=== PATIENT | female | born 1980 | race Caucasian/White ===

== ENCOUNTER 2016-04-18 05:27 | Emergency (ER) | payer OTHER ==
--- NOTE | 2016-04-18 06:58 | ED ORDER SUMMARY ---
..... Patient: CARMELITA STOVALL OrderSheet [facility] VisitID: [id number] [place] [address] 35y, F Registration Date/Time: 04/18/2016 ORDER SHEET Weight: 89.8 kg (stated) Allergies: Ibuprofen GENERAL ORDERS: Rapid Influenza Screen (Nasal Pharyngeal) (nasal swab) Urgent (05:44 04/18/2016 EInderbitzen R.N. verbal order read back to Regina SANTILLAN) (Ack 5:55 OSnell) (6:30 EInderbitzen R.N.) MEDICATION ORDERS: - (Tamiflu 75 mg PO x 1) (06:07 04/18/2016 Regina SANTILLAN) (6:30 EInderbitzen R.N.) Hydrocodone-APAP PO 5/325 mg (NOW, HIGH ALERT MEDICATION) (07:10 04/18/2016 Regina SANTILLAN) (7:12 KWilliams R.N.) IV FLUIDS: IV NS : initial bolus 1000 mL (1000 mL/hr), then none - (NOW) (06:05 04/18/2016 Regina SANTILLAN) (6:29 EInderbitzen R.N.) Zofran IV 8 mg (NOW) (06:05 04/18/2016 Regina SANTILLAN) (6:30 EInderbitzen R.N.) Toradol IV 30 mg (NOW) (06:05 04/18/2016 Regina SANTILLAN) (6:30 EInderbitzen R.N.) ORDER SHEET NOTES: [Electronically signed by Shila Walter R.N. (07:15 04/18/2016)] [Electronically signed by Ashanti Antony MD (06:36 04/22/2016)] [Electronically locked/signed by Shila Walter R.N. (07:15 04/18/2016)]
--- NOTE | 2016-04-18 06:58 | ED ORDER SUMMARY ---
..... Patient: CARMELITA STOVALL OrderSheet [facility] VisitID: [id number] [place] [address] 35y, F Registration Date/Time: 04/18/2016 ORDER SHEET Weight: 89.8 kg (stated) Allergies: Ibuprofen GENERAL ORDERS: Rapid Influenza Screen (Nasal Pharyngeal) (nasal swab) Urgent (05:44 04/18/2016 EInderbitzen R.N. verbal order read back to Regina SANTILLAN) (Ack 5:55 OSnell) (6:30 EInderbitzen R.N.) MEDICATION ORDERS: - (Tamiflu 75 mg PO x 1) (06:07 04/18/2016 Regina SANTILLAN) (6:30 EInderbitzen R.N.) Hydrocodone-APAP PO 5/325 mg (NOW, HIGH ALERT MEDICATION) (07:10 04/18/2016 Regina SANTILLAN) (7:12 KWilliams R.N.) IV FLUIDS: IV NS : initial bolus 1000 mL (1000 mL/hr), then none - (NOW) (06:05 04/18/2016 Regina SANTILLAN) (6:29 EInderbitzen R.N.) Zofran IV 8 mg (NOW) (06:05 04/18/2016 Regina SANTILLAN) (6:30 EInderbitzen R.N.) Toradol IV 30 mg (NOW) (06:05 04/18/2016 Regina SANTILLAN) (6:30 EInderbitzen R.N.) ORDER SHEET NOTES: [Electronically signed by Shila Walter R.N. (07:15 04/18/2016)] [Electronically signed by Ashanti Antony MD (06:36 04/22/2016)] [Electronically locked/signed by Shlia Walter R.N. (07:15 04/18/2016)]
--- NOTE | 2016-04-18 06:58 | ED NURSING NOTES ---
Clinical Report - Nurses [facility] [address] [place] [address] 04/18/2016 5:30 Patient: CARMELITA STOVALL TRIAGE Triage time 05:Apr 18 2016. Acuity: LEVEL 3. Chief Complaint: (flu like symptoms). 05:34 04/18/16. AJ COMA SCORE: Aj Coma Scale: 15- eyes open spontaneously (4); best verbal response- oriented x 4 (5); best motor response- obeys commands (6). --05:39 Miranda Mendez R.N. 05:34 04/18/16. BP: 113/70. HR: 84. RR: 24. O2 saturation: 98%. Temp: 98.4 F. Pain level now: 11/25. --05:39 Miranda Mendez R.N. Weight: 89.8 kg stated. Height/Length: 62 inches Per Patient. BMI: 36.2. --05:32 Miranda Mendez RCele. Medications [place] Oral. --05:38 Miranda Mendez R.N. Depakote Oral. --05:38 Miranda Mendez R.N. Gabapentin Oral. --05:38 Miranda Mendez R.N. Allergies Ibuprofen. --05:37 Miranda Mendez R.Jean. Medication/allergy information source: the patient. --05:39 Miranda Mendez RCele. History Arrived by private vehicle. Historian: patient. Accompanied by friend. Onset. (2 weeks). ( worse since Albert, body aches, fevers, cough weak). She has had fever and weakness. She has had a cough productive of sputum (moist). No difficulty breathing or skin rash. Denies muscle aches. 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 PAST MEDICAL HX: Last normal menstrual period- 2010. SOCIAL HX: Heavy tobacco smoker (cigarette)- 1 pack per day. Occasional alcohol use. History of drug use: marijuana. No infectious disease exposure. ABUSE ASSESSMENT: No report of abuse. SELF HARM ASSESSMENT: A self harm assessment was performed. The patient answered "no" to the question "Have you recently felt down, depressed, or hopeless?", "Have you noticed less interest or pleasure in doing things?", "Do you have thoughts of harming or killing yourself?", "Are you here because you tried to hurt yourself?", "Have you ever tried to hurt yourself before today?", "Have you recently had thoughts about harming or killing others?" and "Do you have any dangerous items in your possession?". FALL RISK ASSESSMENT: Fall risk assessment completed. No fall risk identified. NUTRITIONAL RISK ASSESSMENT: The nutritional risk assessment revealed no deficiencies. FUNCTIONAL ASSESSMENT: Functional assessment: no impairments noted. LEARNING NEEDS ASSESSMENT: The learning needs assessment revealed no barriers. SKIN INTEGRITY ASSESSMENT: Skin integrity risk assessment completed. No skin integrity risk identified. --05:39 Miranda Mendez R.N. PROBLEMS: Bipolar Disorder. --05:38 Miranda Mendez R.N. ADDITIONAL SURGERIES: Hysterectomy. --05:38 Miranda Mendez R.N. Interventions ID band on patient. --05:39 Miranda Mendez R.N. PHYSICAL ASSESSMENT 05:40 04/18/16. GENERAL / NEURO / PSYCH: Alert. Oriented X 4. HEENT: Pupils equal, round and reactive to light. Mucous membranes are pink. RESPIRATORY: Respirations not labored. Chest nontender. Breath sounds within normal limits. CVS: Pulses within normal limits. GI / : Abdomen soft and nontender. SKIN: Skin intact. Skin is warm and dry. Normal skin turgor. --05:40 Miranda Mendez R.N. NURSING PROGRESS NOTES 05:39 04/18/16. The initial plan of care for this patient includes an assessment with efforts to address the presence of pain; hydration needs. This plan of care was discussed with the patient. Patient gowned. Reassurance given to the patient. Two patient identifiers checked. Call light placed in reach. Side rails up x 2. Bed placed in lowest position. Brakes of bed on. Patient ready for evaluation. --05:39 Miranda Mendez R.N. 05:40 04/18/16. Patient ID band checked for patient name and birthdate: patient confirmed. Flu swab obtained by RN via nasal swab. Labeled in the presence of the patient and sent to lab. --05:40 Miranda Mendez R.N. 06:24 04/18/2016 Tamiflu PO Capsules 75 mg given. Allergies verified and confirmed 5 rights. --06:30 Miranda Mendez R.N. 06:25 04/18/2016 Site #1 started via IV in the left forearm with an 22g angiocath, with aseptic technique and good blood return; two attempts. Saline lock flushed with 5 mL saline. --06:29 Miranda Mendez R.N. 06:26 04/18/2016 Started bag #1 1000 mL IV Fluids IV NS (Saline); at 1000 mL/hr over 1 hour(s) via site #1. Allergies verified and confirmed 5 rights. IV patency established. IV site checked: no pain, redness, or swelling. IV flushed thoroughly pre- and post-medication administration. --06:29 Miranda Mendez R.N. 06:26 04/18/2016 Zofran (Ondansetron HCl) IVP 8 mg given over 1 minute(s) via site #1. Allergies verified and confirmed 5 rights. IV patency established. IV site checked: no pain, redness, or swelling. IV flushed thoroughly pre- and post-medication administration. IVP given by RN. --06:30 Miranda Mendez R.N. 06:27 04/18/2016 Toradol IVP 30 mg given over 1 minute(s) via site #1. Allergies verified and confirmed 5 rights. IV patency established. IV site checked: no pain, redness, or swelling. IV flushed thoroughly pre- and post-medication administration. IVP given by RN. --06:30 Miranda Mendez R.N. 07:07 04/18/2016 Hydrocodone-APAP (Hydrocodone-Acetaminophen) PO 5/325 mg Tablets 1 tab given. Allergies verified, confirmed 5 rights and sedative warning given to the patient and patient's scanning manager. --07:12 Shila Walter R.N. 07:09 04/18/2016 IV Fluids IV NS Discontinued: bag #1 infused upon discharge. Total amount infused: 1000 mL. IV patency established. IV site checked: no pain, redness, or swelling. IV flushed thoroughly. --07:15 Shila Walter R.N. DISPOSITION / DISCHARGE 07:09 04/18/2016 Site #1 removed upon discharge. Bandage applied. --07:14 Shila Walter R.N. 07:14 04/18/16. Departure time: 712. Condition at departure: improved and stable. No learning barriers present. Discharge instructions provided and reviewed with the patient and spouse. Reviewed medication(s) side effects, precautions, dosing and course information. Prescription(s) given to the patient. Patient verbalized understanding. Written instructions provided in [place]. The patient was discharged by the physician. She was discharged home and accompanied by spouse. She left the Emergency Department ambulatory and via private vehicle. Spouse driving. --07:14 Shila Walter R.N. 07:13 04/18/16. BP: 113/76. HR: 78. RR: 17. O2 saturation: 99% on room air. Temp: 99.2 F (oral). Pain level now 5/10. --07:14 Shila Walter R.N. Locked/Released at 04/18/2016 7:15 by Shila Walter R.N.
--- NOTE | 2016-04-18 06:58 | ED CLINICAL REPORT ---
Clinical Report - Physicians/Mid Levels [facility] [address] [place] [address] 04/18/2016 5:30 Patient: CARMELITA STOVALL Time Seen: 05:35. Arrived- By private vehicle. Historian- patient. HISTORY OF PRESENT ILLNESS Chief Complaint: DYSPNEA and fever. This started about 3 days ago and is still present. The dyspnea is described as mild and is worsened by cough and is improved by rest. The patient has had a cough and chills. No sputum production, sweating episodes, wheezing or dyspnea on exertion. No chest pain or discomfort, calf pain, foot swelling or orthopnea. No anxiety, dizziness, tingling, numbness or palpitations. The patient has had fever (- gone). Similar symptoms previously: None. Recent medical care: Not recently seen/assessed. REVIEW OF SYSTEMS The patient has not had weight loss. She has had a nasal discharge, muscle aches, a sore throat and headache and nausea. She has had vomiting. No eye irritation, sinus drainage, abdominal pain, diarrhea or black stools. No bloody stools, fainting episodes, blurred vision, difficulty with urination or excessive urination. No skin rash, enlarged lymph nodes or joint pain. Denies current . All systems otherwise negative, except as recorded above. PAST HISTORY Problems: Mental Illness. Anxiety Reaction. Personality Disorder. Suicidal Ideation. Alcohol Intoxication. Carpal Bone Fracture. Hypertension. Tetanus Status. Bipolar Disorder. Depression. Additional Surgeries: Hysterectomy. Medications: Gabapentin Oral. Depakote Oral. Pasatiempo Oral. Allergies: Ibuprofen. SOCIAL HISTORY Smoker- current status unknown. Alcohol use. History of drug use: marijuana. ADDITIONAL NOTES The nursing notes have been reviewed. PHYSICAL EXAM Vital Signs: 04/18/2016 05:34 BP: 113/70. HR: 84. RR: 24. O2 saturation: 98%. Temp: 98.4 F. Pain level now: 8/10. Have been reviewed. Appearance: Alert. No acute distress. Eyes: Pupils equal, round and reactive to light. Eyes normal inspection. ENT: Nose normal. Neck: Normal inspection. Neck supple. CVS: Normal heart rate and rhythm. Heart sounds normal. Pulses normal. Respiratory: No respiratory distress. Breath sounds normal. Abdomen: Soft and nontender. Back: Normal inspection. No CVA tenderness. Skin: Skin warm and dry. Normal skin color. No rash. Normal skin turgor. Extremities: Extremities exhibit normal ROM. No lower extremity edema. Neuro: Oriented X 3. No motor deficit. No sensory deficit. LABS, X-RAYS, AND EKG Laboratory Tests: Rapid Influenza Screen: (WHITLEY: 04/18/2016 05:40) ( MsgRcvd 04/18/2016 06:08) Final results SPECIMEN DESCRIPTION: NASAL SWAB Test Result Flag Units (Reference) RAPID INFLUENZA SCREEN CALLED TO: NANETTE@0607 -- DATE: 04/18/16 INFLUENZA A: POSITIVE SCREEN FOR INFLUENZA A INFLUENZA B: NEGATIVE SCREEN FOR INFLUENZA B . Pulse Oximetry: 04/18/2016 05:34 O2 saturation: 98%. (FIO2 - room air). Interpretation: normal. PROGRESS AND PROCEDURES Course of Care: PT was given IV fluids, Zofran, Toradol, and Dilaudid for symptomatic relief. Sx were suspicious for influenza, and pt did test positive for Influenza A. She was started on Tamiflu for this. Patient counseled in person regarding the patient's stable condition, test results, diagnosis and need for follow-up. Concerns were addressed. Old medical records reviewed. Disposition: Discharged. Condition: stable and improved. CLINICAL IMPRESSION Influenza type A with upper respiratory infection, pharyngitis and gastroenteritis. INSTRUCTIONS (Your influenza test was positive.). Warnings: GENERAL WARNINGS: Return or contact your physician immediately if your condition worsens or changes unexpectedly, if not improving as expected, or if other problems arise. Your Current Medications: CONTINUE TAKING THE FOLLOWING MEDICATIONS: Depakote Oral. Gabapentin Oral. Pasatiempo Oral. Prescription Medications: Tamiflu 75 mg: take 1 capsule orally every 12 hours for 5 days. No refill. Substitution is permissible. Follow-up: Follow up with your doctor as needed. Understanding of the discharge instructions verbalized by patient. (Electronically signed by Ashanti Antony MD 04/22/2016 6:36)
--- NOTE | 2016-04-18 06:58 | ED NURSING NOTES ---
Clinical Report - Nurses [facility] [address] [place] [address] 04/18/2016 5:30 Patient: CARMELITA STOVALL TRIAGE Triage time 05:Apr 18 2016. Acuity: LEVEL 3. Chief Complaint: (flu like symptoms). 05:34 04/18/16. AJ COMA SCORE: Aj Coma Scale: 15- eyes open spontaneously (4); best verbal response- oriented x 4 (5); best motor response- obeys commands (6). --05:39 Miranda Mendez R.N. 05:34 04/18/16. BP: 113/70. HR: 84. RR: 24. O2 saturation: 98%. Temp: 98.4 F. Pain level now: 11/25. --05:39 Miranda Mendez R.N. Weight: 89.8 kg stated. Height/Length: 62 inches Per Patient. BMI: 36.2. --05:32 Miranda Mendez RCele. Medications [place] Oral. --05:38 Miranda Mendez R.N. Depakote Oral. --05:38 Miranda Mendez R.N. Gabapentin Oral. --05:38 iMranda Mendez R.N. Allergies Ibuprofen. --05:37 Miranda Mendez R.Jean. Medication/allergy information source: the patient. --05:39 Miranda Mendez RCele. History Arrived by private vehicle. Historian: patient. Accompanied by friend. Onset. (2 weeks). ( worse since Albert, body aches, fevers, cough weak). She has had fever and weakness. She has had a cough productive of sputum (moist). No difficulty breathing or skin rash. Denies muscle aches. 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 PAST MEDICAL HX: Last normal menstrual period- 2010. SOCIAL HX: Heavy tobacco smoker (cigarette)- 1 pack per day. Occasional alcohol use. History of drug use: marijuana. No infectious disease exposure. ABUSE ASSESSMENT: No report of abuse. SELF HARM ASSESSMENT: A self harm assessment was performed. The patient answered "no" to the question "Have you recently felt down, depressed, or hopeless?", "Have you noticed less interest or pleasure in doing things?", "Do you have thoughts of harming or killing yourself?", "Are you here because you tried to hurt yourself?", "Have you ever tried to hurt yourself before today?", "Have you recently had thoughts about harming or killing others?" and "Do you have any dangerous items in your possession?". FALL RISK ASSESSMENT: Fall risk assessment completed. No fall risk identified. NUTRITIONAL RISK ASSESSMENT: The nutritional risk assessment revealed no deficiencies. FUNCTIONAL ASSESSMENT: Functional assessment: no impairments noted. LEARNING NEEDS ASSESSMENT: The learning needs assessment revealed no barriers. SKIN INTEGRITY ASSESSMENT: Skin integrity risk assessment completed. No skin integrity risk identified. --05:39 Miranda Mendez R.N. PROBLEMS: Bipolar Disorder. --05:38 Miranda Mendez R.N. ADDITIONAL SURGERIES: Hysterectomy. --05:38 Miranda Mendez R.N. Interventions ID band on patient. --05:39 Miranda Mendez R.N. PHYSICAL ASSESSMENT 05:40 04/18/16. GENERAL / NEURO / PSYCH: Alert. Oriented X 4. HEENT: Pupils equal, round and reactive to light. Mucous membranes are pink. RESPIRATORY: Respirations not labored. Chest nontender. Breath sounds within normal limits. CVS: Pulses within normal limits. GI / : Abdomen soft and nontender. SKIN: Skin intact. Skin is warm and dry. Normal skin turgor. --05:40 Miranda Mendez R.N. NURSING PROGRESS NOTES 05:39 04/18/16. The initial plan of care for this patient includes an assessment with efforts to address the presence of pain; hydration needs. This plan of care was discussed with the patient. Patient gowned. Reassurance given to the patient. Two patient identifiers checked. Call light placed in reach. Side rails up x 2. Bed placed in lowest position. Brakes of bed on. Patient ready for evaluation. --05:39 Miranda Mendez R.N. 05:40 04/18/16. Patient ID band checked for patient name and birthdate: patient confirmed. Flu swab obtained by RN via nasal swab. Labeled in the presence of the patient and sent to lab. --05:40 Miranda Mendez R.N. 06:24 04/18/2016 Tamiflu PO Capsules 75 mg given. Allergies verified and confirmed 5 rights. --06:30 Miranda Mendez R.N. 06:25 04/18/2016 Site #1 started via IV in the left forearm with an 22g angiocath, with aseptic technique and good blood return; two attempts. Saline lock flushed with 5 mL saline. --06:29 Miranda Mendez R.N. 06:26 04/18/2016 Started bag #1 1000 mL IV Fluids IV NS (Saline); at 1000 mL/hr over 1 hour(s) via site #1. Allergies verified and confirmed 5 rights. IV patency established. IV site checked: no pain, redness, or swelling. IV flushed thoroughly pre- and post-medication administration. --06:29 Miranda Mendez R.N. 06:26 04/18/2016 Zofran (Ondansetron HCl) IVP 8 mg given over 1 minute(s) via site #1. Allergies verified and confirmed 5 rights. IV patency established. IV site checked: no pain, redness, or swelling. IV flushed thoroughly pre- and post-medication administration. IVP given by RN. --06:30 Miranda Mendez R.N. 06:27 04/18/2016 Toradol IVP 30 mg given over 1 minute(s) via site #1. Allergies verified and confirmed 5 rights. IV patency established. IV site checked: no pain, redness, or swelling. IV flushed thoroughly pre- and post-medication administration. IVP given by RN. --06:30 Miranda Mendez R.N. 07:07 04/18/2016 Hydrocodone-APAP (Hydrocodone-Acetaminophen) PO 5/325 mg Tablets 1 tab given. Allergies verified, confirmed 5 rights and sedative warning given to the patient and patient's dough raiser. --07:12 Shila Walter R.N. 07:09 04/18/2016 IV Fluids IV NS Discontinued: bag #1 infused upon discharge. Total amount infused: 1000 mL. IV patency established. IV site checked: no pain, redness, or swelling. IV flushed thoroughly. --07:15 Shila Walter R.N. DISPOSITION / DISCHARGE 07:09 04/18/2016 Site #1 removed upon discharge. Bandage applied. --07:14 Shila Walter R.N. 07:14 04/18/16. Departure time: 712. Condition at departure: improved and stable. No learning barriers present. Discharge instructions provided and reviewed with the patient and spouse. Reviewed medication(s) side effects, precautions, dosing and course information. Prescription(s) given to the patient. Patient verbalized understanding. Written instructions provided in [place]. The patient was discharged by the physician. She was discharged home and accompanied by spouse. She left the Emergency Department ambulatory and via private vehicle. Spouse driving. --07:14 Shila Walter R.N. 07:13 04/18/16. BP: 113/76. HR: 78. RR: 17. O2 saturation: 99% on room air. Temp: 99.2 F (oral). Pain level now 5/10. --07:14 Shila Walter R.N. Locked/Released at 04/18/2016 7:15 by Shila Walter R.N.
--- NOTE | 2016-04-22 06:36 | ED MAR SUMMARY ---
..... Medication Administration Record [facility] [address] [place] [address] Patient: CARMELITA STOVALL Visit ID: [id number] 35y, F Weight: 89.8 kg Height/Length: 62 in BMI: 36.2 ALLERGIES: Ibuprofen Given 06:24 04/18/2016 Miranda Mendez R.N. Medication Administered: TAMIFLU [PO], Dose: 75 mg Capsules PO. Medication Ordered: - (Tamiflu 75 mg PO x 1). Start 06:26 04/18/2016 Miranda Mendez R.N., Stop 07:09 04/18/2016 Shila Walter R.N. Medication Administered: IV NS (SALINE), Dose: IV Fluids over 1 hour(s), Rate: 1000 mL/hr, Dispensed: 1000 mL bag, Site: #1 left forearm. Medication Ordered: IV NS : initial bolus 1000 mL (1000 mL/hr), then none - (NOW). Given 06:26 04/18/2016 Miranda Mendez R.N. Medication Administered: ZOFRAN [IVP] (ONDANSETRON HCL), Dose: 8 mg IVP over 1 minute(s), Site: #1 left forearm. Medication Ordered: Zofran IV 8 mg (NOW). Given 06:04/18/2016 Miranda Mendez R.N. Medication Administered: TORADOL [IVP], Dose: 30 mg IVP over 1 minute(s), Site: #1 left forearm. Medication Ordered: Toradol IV 30 mg (NOW). Given 07:04/18/2016 Shila Walter R.N. Medication Administered: HYDROCODONE-APAP [PO] (HYDROCODONE-ACETAMINOPHEN), Dose: 1 tab 5/325 mg Tablets PO. Medication Ordered: Hydrocodone-APAP PO 5/325 mg (NOW, HIGH ALERT MEDICATION).
--- NOTE | 2016-04-22 06:36 | ED MED RECONCILIATION SUMMARY ---
Patient: CARMELITA STOVALL Medication Reconciliation Report [facility] VisitID: [id number] [place] [address] 35y, F Registration Date/Time: 04/18/2016 Weight: 89.8 kg Height/Length: 62 in. BMI: 36.2 ALLERGIES: Ibuprofen The patient's Home Medications are listed below: CONTINUE TAKING THE FOLLOWING MEDICATIONS: Depakote Oral Gabapentin Oral [place] Oral The source(s) of the original Home Medication information: patient The following Medications were given to the patient in the Emergency Department: IV NS IV Fluids bolus 0, then 1000 mL/hr, administered: 04/18/2016 6:26:00 AM Zofran [IVP] IVP 8 mg, administered: 04/18/2016 6:26:00 AM Toradol [IVP] IVP 30 mg, administered: 04/18/2016 6:27:00 AM Tamiflu [PO] PO 75 mg, administered: 04/18/2016 6:24:00 AM Hydrocodone-APAP [PO] PO 1 tab, administered: 04/18/2016 7:07:00 AM The following Medications were prescribed to the patient: Tamiflu 75 mg: take 1 capsule orally every 12 hours for 5 days. No refill. Substitution is permissible. -- Ashanti Antony MD
--- NOTE | 2016-04-22 06:36 | ED MED RECONCILIATION SUMMARY ---
Patient: CARMELITA STOVALL Medication Reconciliation Report [facility] VisitID: [id number] [place] [address] 35y, F Registration Date/Time: 04/18/2016 Weight: 89.8 kg Height/Length: 62 in. BMI: 36.2 ALLERGIES: Ibuprofen The patient's Home Medications are listed below: CONTINUE TAKING THE FOLLOWING MEDICATIONS: Depakote Oral Gabapentin Oral [place] Oral The source(s) of the original Home Medication information: patient The following Medications were given to the patient in the Emergency Department: IV NS IV Fluids bolus 0, then 1000 mL/hr, administered: 04/18/2016 6:26:00 AM Zofran [IVP] IVP 8 mg, administered: 04/18/2016 6:26:00 AM Toradol [IVP] IVP 30 mg, administered: 04/18/2016 6:27:00 AM Tamiflu [PO] PO 75 mg, administered: 04/18/2016 6:24:00 AM Hydrocodone-APAP [PO] PO 1 tab, administered: 04/18/2016 7:07:00 AM The following Medications were prescribed to the patient: Tamiflu 75 mg: take 1 capsule orally every 12 hours for 5 days. No refill. Substitution is permissible. -- Ashanti Antony MD
--- NOTE | 2016-04-22 06:36 | ED MAR SUMMARY ---
..... Medication Administration Record [facility] [address] [place] [address] Patient: CARMELITA STOVALL Visit ID: [id number] 35y, F Weight: 89.8 kg Height/Length: 62 in BMI: 36.2 ALLERGIES: Ibuprofen Given 06:24 04/18/2016 Miranda Mendez R.N. Medication Administered: TAMIFLU [PO], Dose: 75 mg Capsules PO. Medication Ordered: - (Tamiflu 75 mg PO x 1). Start 06:26 04/18/2016 Miranda Mendez R.N., Stop 07:09 04/18/2016 Shila Walter R.N. Medication Administered: IV NS (SALINE), Dose: IV Fluids over 1 hour(s), Rate: 1000 mL/hr, Dispensed: 1000 mL bag, Site: #1 left forearm. Medication Ordered: IV NS : initial bolus 1000 mL (1000 mL/hr), then none - (NOW). Given 06:26 04/18/2016 Miranda Menedz R.N. Medication Administered: ZOFRAN [IVP] (ONDANSETRON HCL), Dose: 8 mg IVP over 1 minute(s), Site: #1 left forearm. Medication Ordered: Zofran IV 8 mg (NOW). Given 06:04/18/2016 Miranda Mendez R.N. Medication Administered: TORADOL [IVP], Dose: 30 mg IVP over 1 minute(s), Site: #1 left forearm. Medication Ordered: Toradol IV 30 mg (NOW). Given 07:04/18/2016 Shila Walter R.N. Medication Administered: HYDROCODONE-APAP [PO] (HYDROCODONE-ACETAMINOPHEN), Dose: 1 tab 5/325 mg Tablets PO. Medication Ordered: Hydrocodone-APAP PO 5/325 mg (NOW, HIGH ALERT MEDICATION).
--- NOTE | 2016-04-22 06:36 | ED DISCHARGE INSTRUCTIONS ---
Patient: CARMELITA STOVALL General Instructions [facility] VisitID: [id number] [place] [address] 35y, F Registration Date/Time: 04/18/2016 Influenza type A with upper respiratory infection, pharyngitis and gastroenteritis. INSTRUCTIONS (Your influenza test was positive.). Warnings: GENERAL WARNINGS: Return or contact your physician immediately if your condition worsens or changes unexpectedly, if not improving as expected, or if other problems arise. Your Current Medications: CONTINUE TAKING THE FOLLOWING MEDICATIONS: Depakote Oral. Gabapentin Oral. [place] Oral. Prescription Medications: Tamiflu 75 mg: take 1 capsule orally every 12 hours for 5 days. No refill. Substitution is permissible. Follow-up: Follow up with your doctor as needed. Understanding of the discharge instructions verbalized by patient. ADDITIONAL INFORMATION Influenza (Adult) Influenza, also called the flu, is a viral illness that affects the air passages of the lungs. It differs from the common cold. It is highly contagious. It may be spread through the air by coughing and sneezing or by direct contact (touching the sick person and then touching your own eyes, nose or mouth). Illness starts 1-3 days after exposure and lasts for 1-2 weeks. Antibiotics are usually not needed unless a complication appears (ear or sinus infection or pneumonia). Symptoms may be mild or severe and can include extreme tiredness (wanting to stay in bed all day), chills, fevers, muscle aching, soreness with eye movement, headache, and a dry, hacking cough. Home Care: Avoid exposure to cigarette smoke (yours or others). Tylenol or ibuprofen (Advil) will help fever, muscle aching, and headache. To avoid risk of liver injury, aspirin should not be used in children and teenagers under 18 with this illness. Nausea and loss of appetite are common. A light diet is recommended. Avoid dehydration by drinking 6-8 glasses of fluids per day (water, sport drinks like Gatorade, soft drinks without caffeine, juices, tea, soup, etc.). Extra fluids will also help loosen secretions in the nose and lungs. [id number]-[id number] cold medicines will not shorten the duration of the illness but may be helpful for the following symptoms: cough (Robitussin DM); sore throat (Chloraseptic lozenges or spray); nasal and sinus congestion (Actifed or Sudafed). [NOTE: Do not use decongestants if you have high blood pressure.] Stay home until your fever has been gone for at least 24 hours (without the use of fever-reducing medications such as ibuprofen). Follow Up with your doctor or as directed by our staff if you are not improving over the next week. Note: If you are age 65 or older, or if you have chronic asthma or COPD, we recommend a pneumococcal vaccinationevery five years. All adults shouldreceive a yearly influenza vaccination every . Ask your doctor about this. Get Prompt Medical Attention if any of the following occur: Cough with lots of colored sputum (mucus) or blood in your sputum Chest pain, shortness of breath, wheezing, or difficulty breathing Severe headache, face, neck or ear pain New rash Fever of 100.4F (38C) oral or higher, not better with fever medication Confusion, behavior change or seizure Severe weakness or dizziness You have been given the following additional information: Influenza (Adult) (Electronically signed by Ashanti Antony MD 04/22/2016 6:36)
== END 2016-04-18 07:13 | disposition home or self-care (01) ==
LOC: ED SRH 05:27
DX: J10.1 Influenza due to other identified influenza virus with other respiratory manifestations (principal); J02.9 Acute pharyngitis, unspecified; K52.9 Noninfective gastroenteritis and colitis, unspecified; Z88.8 Allergy status to other drugs, medicaments and biological substances
CPT/HCPCS: 91400